=== PATIENT | male | born 1965 | race Two or more races ===

== ENCOUNTER 2017-03-31 00:01 | Emergency (ER) | payer OTHER ==
[~2017-03-31] VITALS: Ht 188 cm; Wt 158.8 kg
[2017-03-31] MEDS ORDERED: TRICOR48 MG (00:10)
[2017-03-31] MEDS ORDERED: RIOMET500 MG/5 M (00:10)
[2017-03-31] MEDS ORDERED: ADIPEX-P37.5 MG (00:11)
[2017-03-31] MEDS ORDERED: LOSARTAN-HCTZ1 EAC1 (00:11)
[2017-03-31] MEDS ORDERED: CIPROFLOXACIN500 MG PO (08:13)
[2017-03-31] MEDS ORDERED: OMEPRAZOLE20 MG PO (08:13)
[2017-03-31] MEDS ORDERED: FLAGYL500MG PO (08:13)
== END 2017-03-31 09:23 | disposition home or self-care (01) ==
LOC: ER 00:01
DX: K57.92 Diverticulitis of intestine, part unspecified, without perforation or abscess without bleeding (principal)

== ENCOUNTER 2017-08-02 06:35 | Day surgery (SDC) | payer OTHER ==
[~2017-08-02 06:35] MED LIST: ADIPEX-P37.5 MG; CIPROFLOXACIN500 MG PO; FLAGYL500MG PO; LOSARTAN-HCTZ1 EAC1; OMEPRAZOLE20 MG PO; RIOMET500 MG/5 M; TRICOR48 MG
== END 2017-08-02 13:15 | disposition home or self-care (01) ==
LOC: AMB-ENDOS 06:35
DX: D12.5 Benign neoplasm of sigmoid colon (principal); D12.8 Benign neoplasm of rectum; Z12.11 Encounter for screening for malignant neoplasm of colon; K57.30 Diverticulosis of large intestine without perforation or abscess without bleeding; K64.0 First degree hemorrhoids